=== PATIENT | male | born 1960 | race Caucasian/White ===

== ENCOUNTER 2023-06-01 14:12 | Inpatient (IN) | payer MEDICARE, MEDICAID ==
[2023-06-01] MEDS ORDERED: Morphine 4 MG/ML VIAL ONE (16:54)
[2023-06-01 17:11] LABS: #Eosinphils 0.3 10x3/uL (0.0-0.5); #Monocytes 0.6 10x3/uL (0.0-1.1); #Neutrophils 5.1 10x3/uL (1.5-8.4); %Basophils 0.5 % (0.0-2.0); %Eosinophils 3.7 % (0.0-6.0); %Lymphocytes 26.4 % (18.0-47.0); %Monocytes 7.7 % (0.0-10.0); %Neutrophils 61.3 % (40.0-75.0); Hematocrit 40.3 % (38.8-50.0); Hemoglobin 12.8 g/dL (13.5-17.5); Mean Corpuscular HGB CONC 31.8 g/dL (32.0-36.0); Mean Corpuscular Hemoglobin 29.8 pg (27.0-33.0); Mean Corpuscular Volume 93.9 fl (81.2-95.1); Mean Platelet Volume 9.4 fl (7.4-10.4); Platelet Count 172 10x3/uL (150-450); Red Blood Cell (RBC) Count 4.29 10x6/uL (4.32-5.72); White Blood Cell (WBC) Count 8.3 10x3/uL (3.5-10.5)
[2023-06-01 17:29] LABS: PTT 25.8 sec (22.0-33.0); Prothrombin Time 10.3 sec (9.5-12.1)
[2023-06-01 17:31] LABS: ALT (SGPT) 13 U/L (8-55); AST (SGOT) 21 U/L (5-34); Albumin 3.7 g/dL (3.4-4.8); Alkaline Phosphatase 103 U/L (40-110); Anion Gap 14 mmol/L (10-20); BUN (Urea Nitrogen) 22 mg/dL (8.4-25.7); Bilirubin, Total 0.5 mg/dL (0.2-1.2); Calc. Creatinine Clearance 0 mL/min (70-130); Calcium 8.7 mg/dL (7.8-10.44); Carbon Dioxide 20 mmol/L (23-31); Chloride 109 mmol/L (98-107); Estimated GFR 49; Globulin 3.9 g/dL (2.4-3.5); Glucose 85 mg/dL (80-115); Potassium 5.4 mmol/L (3.5-5.1); Protein, Total 7.6 g/dL (5.8-8.1); Sodium 138 mmol/L (136-145)
[2023-06-01] MEDS ORDERED: fentaNYL 50 mcg/mL 1 mL Vial ONE (17:39)
[2023-06-01] MEDS ORDERED: Calcium Carbonate 500 MG ChewTAB PO PRN (19:20)
[2023-06-01] MEDS ORDERED: Ondansetron PF 4 MG/2 ML Vial IVP PRN (19:20)
[2023-06-01] MEDS ORDERED: Senokot S 8.6-50 MG TAB PO PRN (19:20)
[2023-06-01] MEDS ORDERED: Dextrose 5% in Water 1,000 ML IV PRN (19:20)
[2023-06-01] MEDS ORDERED: Acetaminophen 325 MG TAB PO PRN (19:20)
[2023-06-01] MEDS ORDERED: Guaifenesin DM 100-10/5 ML UDCUP PO PRN (19:20)
[2023-06-01] MEDS ORDERED: Glucagon 1 MG/ML KIT IM PRN (19:20)
[2023-06-01] MEDS ORDERED: Dextrose 50% Abboject 50 ML SYRINGE SLOW IVP PRN (19:20)
[2023-06-01] MEDS ORDERED: Ventolin HFA Inhaler 60 PUFF INHALER INH PRN (19:23)
[2023-06-01] MEDS ORDERED: Ipratropium/Albuterol 3 ML NEB NEB PRN (19:27)
[2023-06-01] MEDS ORDERED: Morphine 2 MG/ML VIAL SLOW IVP PRN (19:48)
[2023-06-01] MEDS ORDERED: Calcium Gluc 4.6 MEQ/10 ML (100 MG/ML) SLOW IVP SCH (20:00)
[2023-06-01 20:19] VITALS: BMI 41.5
[2023-06-01] MEDS ORDERED: Nicotine 21 MG PATCH TD SCH (20:45)
[2023-06-01] MEDS: Atorvastatin Calcium 40 MG TAB PO SCH (20:56)
[2023-06-01] MEDS: Venlafaxine 75 MG TAB PO SCH (20:56)
[2023-06-01] MEDS: Famotidine/PF 20 mg/2ml Vial SLOW IVP SCH (20:56)
[2023-06-01] MEDS: traZODone HCl 50 MG TAB PO SCH (20:56)
[2023-06-01] MEDS ORDERED: traZODone HCl 150 MG TAB PO SCH (21:00)
[2023-06-01] MEDS: Isosorbide Mononitrate 20 MG TAB PO SCH (21:15)
[2023-06-01] MEDS ORDERED: Sodium Chloride 0.45% 500 ML IV SCH (23:30)
[2023-06-01] MEDS: oxyCODONE 5 MG TAB PO PRN (23:33)
[2023-06-02] MEDS: Morphine 4 MG/ML VIAL SLOW IVP PRN ×4 (01:58→16:10)
[2023-06-02 03:55] LABS: #Eosinphils 0.2 10x3/uL (0.0-0.5); #Monocytes 0.5 10x3/uL (0.0-1.1); #Neutrophils 5.7 10x3/uL (1.5-8.4); %Basophils 0.4 % (0.0-2.0); %Eosinophils 2.1 % (0.0-6.0); %Lymphocytes 17.7 % (18.0-47.0); %Monocytes 6.7 % (0.0-10.0); %Neutrophils 72.8 % (40.0-75.0); Hematocrit 37.8 % (38.8-50.0); Hemoglobin 12.5 g/dL (13.5-17.5); Mean Corpuscular HGB CONC 33.1 g/dL (32.0-36.0); Mean Corpuscular Hemoglobin 30.1 pg (27.0-33.0); Mean Corpuscular Volume 91.1 fl (81.2-95.1); Mean Platelet Volume 9.3 fl (7.4-10.4); Platelet Count 175 10x3/uL (150-450); RBC Distribution Width 13.8 % (11.5-14.5); Red Blood Cell (RBC) Count 4.15 10x6/uL (4.32-5.72); White Blood Cell (WBC) Count 7.8 10x3/uL (3.5-10.5)
[2023-06-02 04:00] LABS: Anion Gap 16 mmol/L (10-20); BUN (Urea Nitrogen) 18 mg/dL (8.4-25.7); Calc. Creatinine Clearance 117 mL/min (70-130); Calcium 8.7 mg/dL (7.8-10.44); Carbon Dioxide 20 mmol/L (23-31); Chloride 109 mmol/L (98-107); Estimated GFR 68; Glucose 111 mg/dL (80-115); PTT 30.8 sec (22.0-33.0); Potassium 5.1 mmol/L (3.5-5.1); Prothrombin Time 10.9 sec (9.5-12.1); Sodium 140 mmol/L (136-145)
[2023-06-02] MEDS: Mometasone/Formoterol 200/5 60 PUFF INH SCH ×2 (08:23→19:40)
[2023-06-02] MEDS: Atenolol 25 MG TAB PO SCH (08:59)
[2023-06-02] MEDS: Venlafaxine 75 MG TAB PO SCH ×3 (08:59→20:19)
[2023-06-02] MEDS: Isosorbide Mononitrate 20 MG TAB PO SCH ×2 (08:59→20:26)
[2023-06-02] MEDS: Ezetimibe 10 MG TAB PO SCH (08:59)
[2023-06-02] MEDS: Famotidine/PF 20 mg/2ml Vial SLOW IVP SCH ×2 (09:00→20:18)
[2023-06-02] MEDS ORDERED: FLU VACC QS2023-24(6MOS UP)/PF 60 MCG/0.5 ML SYRINGE IM ONE (09:00)
[2023-06-02] MEDS ORDERED: LISINOPRIL 30 MG PO SCH (09:00)
[2023-06-02] MEDS: Benztropine 1 MG TAB PO SCH (09:16)
[2023-06-02] MEDS ORDERED: Thrombin 5000 UNITS/5 ML VIAL TOP SCH ×2 (10:45→11:30)
[2023-06-02] MEDS ORDERED: Sodium Bicarbonate 2.5 MEQ/5 ML VIAL ONE (10:47)
[2023-06-02] MEDS ORDERED: Lidocaine 1% PF 5 ML VIAL ONE ×2 (10:47→11:20)
[2023-06-02] MEDS: oxyCODONE 5 MG TAB PO PRN ×2 (13:12→20:19)
[2023-06-02] MEDS ORDERED: Diclofenac 1% 100 GM Topical GEL TP SCH (17:00)
[2023-06-02] MEDS: Atorvastatin Calcium 40 MG TAB PO SCH (20:17)
[2023-06-02] MEDS: traZODone HCl 50 MG TAB PO SCH (20:18)
[2023-06-02] MEDS: Diclofenac 1% 50 GM TOPICAL GEL TP SCH (21:35)
[2023-06-03] MEDS: Mometasone/Formoterol 200/5 60 PUFF INH SCH (07:50)
[2023-06-03] MEDS: Ezetimibe 10 MG TAB PO SCH (09:10)
[2023-06-03] MEDS: Isosorbide Mononitrate 20 MG TAB PO SCH (09:10)
[2023-06-03] MEDS: Famotidine/PF 20 mg/2ml Vial SLOW IVP SCH (09:10)
[2023-06-03] MEDS: Diclofenac 1% 50 GM TOPICAL GEL TP SCH ×2 (09:10→13:24)
[2023-06-03] MEDS: Atenolol 25 MG TAB PO SCH (09:10)
[2023-06-03] MEDS: Venlafaxine 75 MG TAB PO SCH (09:10)
[2023-06-03] MEDS: Benztropine 1 MG TAB PO SCH (09:10)
[2023-06-03] MEDS: oxyCODONE 5 MG TAB PO PRN (09:15)
[2023-06-03 12:08] LABS: #Eosinphils 0.1 10x3/uL (0.0-0.5); #Monocytes 0.7 10x3/uL (0.0-1.1); #Neutrophils 6.5 10x3/uL (1.5-8.4); %Basophils 0.4 % (0.0-2.0); %Eosinophils 0.8 % (0.0-6.0); %Lymphocytes 13.3 % (18.0-47.0); %Monocytes 7.8 % (0.0-10.0); %Neutrophils 77.3 % (40.0-75.0); Hematocrit 37.7 % (38.8-50.0); Hemoglobin 12.7 g/dL (13.5-17.5); Mean Corpuscular HGB CONC 33.7 g/dL (32.0-36.0); Mean Corpuscular Volume 89.1 fl (81.2-95.1); Mean Platelet Volume 9.5 fl (7.4-10.4); Platelet Count 206 10x3/uL (150-450); RBC Distribution Width 13.7 % (11.5-14.5); Red Blood Cell (RBC) Count 4.23 10x6/uL (4.32-5.72); White Blood Cell (WBC) Count 8.4 10x3/uL (3.5-10.5)
[2023-06-03 12:19] VITALS: BP 117/70; TEMP 97.9
[2023-06-03] MEDS: Morphine 4 MG/ML VIAL SLOW IVP PRN (12:23)
[2023-06-03] MEDS ORDERED: ALPRAZolam 0.5 MG TAB PO SCH (13:00)
[2023-06-03] MEDS ORDERED: Nicotine 21 MG PATCH TD SCH (14:00)
== END 2023-06-03 14:41 | disposition short-term general hospital (02) | DRG 300 ==
LOC: CSHERS 14:12 → CSHTELE 19:51 → OBSVTOIN 06-03 12:08
PROVIDERS: ADMIT Student in an Organized Health Care Education/Training Program; ATTEND Family Medicine
DX: T81.718A Complication of other artery following a procedure, not elsewhere classified, initial encounter (principal); D62 Acute posthemorrhagic anemia; N17.9 Acute kidney failure, unspecified; I50.32 Chronic diastolic (congestive) heart failure; I13.0 Hypertensive heart and chronic kidney disease with heart failure and stage 1 through stage 4 chronic kidney disease, or unspecified chronic kidney disease; F17.210 Nicotine dependence, cigarettes, uncomplicated; S30.1XXA Contusion of abdominal wall, initial encounter; E78.5 Hyperlipidemia, unspecified; E11.9 Type 2 diabetes mellitus without complications; E66.01 Morbid (severe) obesity due to excess calories; G47.33 Obstructive sleep apnea (adult) (pediatric); E87.5 Hyperkalemia; F41.9 Anxiety disorder, unspecified; F32.A Depression, unspecified; J44.9 Chronic obstructive pulmonary disease, unspecified; K21.9 Gastro-esophageal reflux disease without esophagitis; N18.2 Chronic kidney disease, stage 2 (mild); Z88.5 Allergy status to narcotic agent; Z88.8 Allergy status to other drugs, medicaments and biological substances; Z79.899 Other long term (current) drug therapy; Z90.49 Acquired absence of other specified parts of digestive tract; Z98.890 Other specified postprocedural states
CPT/HCPCS: 36002; 36415; 36416; 76942; 80048; 85025; 85610; 85730; 90471; 90686; 93005; 93923; 94640; G0008; J0612; J2270; J2272; J3010; J7611; S0028

== ENCOUNTER 2023-06-23 08:00 | Outpatient (CLI) | payer MEDICARE, MEDICAID | END 2023-06-23 08:01 | disposition home or self-care (01) | LOC: CSHCT 08:00 | PROVIDERS: ATTEND Internal Medicine | DX: Z12.2 Encounter for screening for malignant neoplasm of respiratory organs (principal); F17.218 Nicotine dependence, cigarettes, with other nicotine-induced disorders | CPT/HCPCS: 71271 ==

== ENCOUNTER 2024-02-19 22:12 | Emergency (ER) | payer MEDICARE, MEDICAID ==
[~2024-02-19 22:12] MED LIST: Iopamidol 300 61% 100 ML VIAL FS ONE
[2024-02-19 23:00] LABS: #Basophils 0.04 10x3/uL (0.0-0.2); #Eosinphils 0.13 10x3/uL (0.0-0.5); #Monocytes 0.55 10x3/uL (0.0-1.1); #Neutrophils 4.69 10x3/uL (1.5-8.4); %Basophils 0.6 % (0.0-2.0); %Eosinophils 1.8 % (0.0-6.0); %Lymphocytes 22.8 % (18.0-47.0); %Monocytes 7.8 % (0.0-10.0); %Neutrophils 66.7 % (40.0-75.0); Hematocrit 46.2 % (38.8-50.0); Hemoglobin 15.8 g/dL (13.5-17.5); Mean Corpuscular HGB CONC 34.2 g/dL (32.0-36.0); Mean Corpuscular Volume 90.8 fL (81.2-95.1); Mean Platelet Volume 9.1 fL (7.4-10.4); Platelet Count 171 10x3/uL (150-450); RBC Distribution Width 13.2 % (11.5-14.5); Red Blood Cell (RBC) Count 5.09 10x6/uL (4.32-5.72)
[2024-02-19] MEDS ORDERED: Morphine 4 MG/ML VIAL ONE (23:01)
[2024-02-19] MEDS ORDERED: Ondansetron PF 4 MG/2 ML Vial ONE (23:01)
[2024-02-19 23:14] LABS: ALT (SGPT) 12 U/L (8-55); AST (SGOT) 18 U/L (5-34); Albumin 3.5 g/dL (3.4-4.8); Alkaline Phosphatase 103 U/L (40-110); Anion Gap 12 mmol/L (10-20); BUN (Urea Nitrogen) 20 mg/dL (8.4-25.7); Bilirubin, Total 0.3 mg/dL (0.2-1.2); Calc. Creatinine Clearance 0 mL/min (70-130); Calcium 9.1 mg/dL (7.8-10.44); Carbon Dioxide 25 mmol/L (23-31); Chloride 107 mmol/L (98-107); Estimated GFR 50; Globulin 4.3 g/dL (2.4-3.5); Glucose 118 mg/dL (80-115); Lipase 17 U/L (8-78); Potassium 4.9 mmol/L (3.5-5.1); Protein, Total 7.8 g/dL (5.8-8.1); Sodium 139 mmol/L (136-145)
== END 2024-02-20 01:13 | disposition home or self-care (01) ==
LOC: CSHERS 22:12
DX: R10.32 Left lower quadrant pain (principal); I13.0 Hypertensive heart and chronic kidney disease with heart failure and stage 1 through stage 4 chronic kidney disease, or unspecified chronic kidney disease; I50.9 Heart failure, unspecified; N18.30 Chronic kidney disease, stage 3 unspecified; I25.10 Atherosclerotic heart disease of native coronary artery without angina pectoris; J44.9 Chronic obstructive pulmonary disease, unspecified; F17.210 Nicotine dependence, cigarettes, uncomplicated; Z79.02 Long term (current) use of antithrombotics/antiplatelets; Z79.899 Other long term (current) drug therapy
CPT/HCPCS: 74177; 80053; 83690; 85025; 96361; 96374; 96375; 99284; J2270; J2405; Q9967

== ENCOUNTER 2024-05-16 07:12 | Outpatient (CLI) | payer OTHER, MEDICAID ==
[2024-05-16 09:58] VITALS: BP 93/52
[2024-05-16] MEDS ORDERED: Iopamidol-M 300 61% 15 ML VIAL ONE (10:20)
== END 2024-05-16 07:13 | disposition home or self-care (01) ==
LOC: CSHRAD 07:12
PROVIDERS: ATTEND Neurological Surgery
DX: M48.061 Spinal stenosis, lumbar region without neurogenic claudication (principal); M51.04 Intervertebral disc disorders with myelopathy, thoracic region; M50.00 Cervical disc disorder with myelopathy, unspecified cervical region; Z98.890 Other specified postprocedural states; M47.816 Spondylosis without myelopathy or radiculopathy, lumbar region; I71.43 Infrarenal abdominal aortic aneurysm, without rupture; M47.14 Other spondylosis with myelopathy, thoracic region; M48.04 Spinal stenosis, thoracic region; M41.84 Other forms of scoliosis, thoracic region; Z96.89 Presence of other specified functional implants; M47.12 Other spondylosis with myelopathy, cervical region
CPT/HCPCS: 62284; 72126; 72129; 72132; 77003

== ENCOUNTER 2024-07-26 09:17 | Observation (INO) | payer MEDICARE, MEDICAID ==
[2024-07-26 09:58] LABS: #Basophils 0.03 10x3/uL (0.0-0.2); #Eosinophils 0.13 10x3/uL (0.0-0.5); #Monocytes 0.48 10x3/uL (0.0-1.1); #Neutrophils 4.15 10x3/uL (1.5-8.4); %Basophils 0.5 % (0.0-2.0); %Eosinophils 2.2 % (0.0-6.0); %Lymphocytes 17.9 % (18.0-47.0); %Monocytes 8.2 % (0.0-10.0); %Neutrophils 70.9 % (40.0-75.0); Hematocrit 48.2 % (38.8-50.0); Hemoglobin 16.5 g/dL (13.5-17.5); Mean Corpuscular HGB CONC 34.2 g/dL (32.0-36.0); Mean Corpuscular Volume 90.4 fL (81.2-95.1); Platelet Count 178 10x3/uL (150-450); RBC Distribution Width 13.6 % (11.5-14.5); Red Blood Cell (RBC) Count 5.33 10x6/uL (4.32-5.72); White Blood Cell (WBC) Count 5.9 10x3/uL (3.5-10.5)
[2024-07-26 10:19] LABS: Troponin I Less than 0.010 ng/mL (< 0.028)
[2024-07-26 10:20] LABS: ALT (SGPT) 10 U/L (8-55); AST (SGOT) 12 U/L (5-34); Albumin 3.6 g/dL (3.4-4.8); Alkaline Phosphatase 117 U/L (40-110); Anion Gap 14 mmol/L (10-20); BUN (Urea Nitrogen) 19 mg/dL (8.4-25.7); Bilirubin, Total 0.4 mg/dL (0.2-1.2); Calc. Creatinine Clearance 0 mL/min (70-130); Calcium 8.8 mg/dL (7.8-10.44); Carbon Dioxide 24 mmol/L (23-31); Chloride 103 mmol/L (98-107); Estimated GFR 53; Glucose 93 mg/dL (80-115); Potassium 5.1 mmol/L (3.5-5.1); Protein, Total 7.6 g/dL (5.8-8.1); Sodium 136 mmol/L (136-145)
[2024-07-26] MEDS ORDERED: Morphine 2 MG/ML VIAL ONE (10:46)
[2024-07-26] MEDS ORDERED: Nitroglycerin 0.4 MG TAB (25 Tab Bottle) SL PRN (13:27)
[2024-07-26 14:31] LABS: Troponin I Less than 0.010 ng/mL (< 0.028)
[2024-07-26 14:45] VITALS: BMI 33.0
[2024-07-26] MEDS: Nicotine 21 MG PATCH TD SCH (15:30)
[2024-07-26] MEDS ORDERED: oxyCODONE 5 MG TAB ONE ×2 (16:50→20:58)
[2024-07-26 16:56] LABS: Troponin I Less than 0.010 ng/mL (< 0.028)
[2024-07-26] MEDS: oxyCODONE 5 MG TAB PO PRN (16:58)
[2024-07-26] MEDS: Nitroglycerin 2% Ointment 1 INCH/1 GM Packet TOP SCH ×2 (17:02→23:16)
[2024-07-26] MEDS ORDERED: Famotidine 20 MG TAB ONE (19:25)
[2024-07-26] MEDS ORDERED: Metoprolol Tartrate 25 MG TAB ONE (19:25)
[2024-07-26] MEDS: Metoprolol Tartrate 25 MG TAB PO SCH (19:50)
[2024-07-26] MEDS: Famotidine 20 MG TAB PO SCH (19:50)
[2024-07-26] MEDS ORDERED: Acetaminophen 325 MG TAB ONE (23:13)
[2024-07-26] MEDS: Acetaminophen 325 MG TAB PO PRN (23:20)
[2024-07-27] MEDS ORDERED: oxyCODONE 5 MG TAB ONE ×2 (01:10→05:22)
[2024-07-27] MEDS ORDERED: Acetaminophen 325 MG TAB ONE (04:04)
[2024-07-27 05:22] LABS: Anion Gap 15 mmol/L (10-20); BUN (Urea Nitrogen) 15 mg/dL (8.4-25.7); Calc. Creatinine Clearance 82 mL/min (70-130); Calcium 9.1 mg/dL (7.8-10.44); Carbon Dioxide 17 mmol/L (23-31); Cardiac Risk 4.7 (Less than 4.5); Chloride 108 mmol/L (98-107); Cholesterol 146 mg/dl (< 200 Desired); Estimated GFR 59; Glucose 96 mg/dL (80-115); HDL Cholesterol 31 mg/dL (>60 Neg Risk); LDL Cholesterol, Calculated 75 mg/dL; Potassium 5.1 mmol/L (3.5-5.1); Sodium 135 mmol/L (136-145); Triglycerides 202 mg/dL (Less than 150)
[2024-07-27] MEDS ORDERED: Nitroglycerin 2% Ointment 1 INCH/1 GM Packet ONE (05:33)
[2024-07-27] MEDS ORDERED: Enoxaparin 40 MG (0.4 mL) SYRINGE ONE (09:21)
[2024-07-27] MEDS ORDERED: Famotidine 20 MG TAB ONE (09:21)
[2024-07-27] MEDS ORDERED: Metoprolol Tartrate 25 MG TAB ONE (09:21)
[2024-07-27] MEDS ORDERED: Aspirin Chewable 81 MG TAB ONE (09:21)
[2024-07-27] MEDS: Aspirin Chewable 81 MG TAB PO SCH (09:45)
[2024-07-27] MEDS: Enoxaparin 40 MG (0.4 mL) SYRINGE SC SCH (09:45)
[2024-07-27 09:49] VITALS: BP 133/91; TEMP 98
[2024-07-27] MEDS ORDERED: Ventolin HFA Inhaler 60 PUFF INHALER INH PRN (10:09)
[2024-07-27] MEDS ORDERED: Atorvastatin Calcium 40 MG TAB PO SCH (10:30)
[2024-07-27] MEDS ORDERED: Isosorbide Mononitrate 20 MG TAB PO SCH ×2 (10:30→18:00)
[2024-07-28] MEDS ORDERED: Ezetimibe 10 MG TAB PO SCH (09:00)
[2024-07-28] MEDS ORDERED: Aspirin 81 mg Enteric Coated Tablet PO SCH (09:00)
[2024-07-28] MEDS ORDERED: Atorvastatin Calcium 40 MG TAB PO SCH (09:00)
== END 2024-07-27 12:26 | disposition home or self-care (01) ==
LOC: CSHERS 09:17 → CSHERHOLD 13:53 → INTOOBSV 13:53
PROVIDERS: ADMIT Internal Medicine; ATTEND Internal Medicine
DX: R07.89 Other chest pain (principal); I25.10 Atherosclerotic heart disease of native coronary artery without angina pectoris; I73.9 Peripheral vascular disease, unspecified; I12.9 Hypertensive chronic kidney disease with stage 1 through stage 4 chronic kidney disease, or unspecified chronic kidney disease; N18.30 Chronic kidney disease, stage 3 unspecified; E11.22 Type 2 diabetes mellitus with diabetic chronic kidney disease; E78.5 Hyperlipidemia, unspecified; E66.01 Morbid (severe) obesity due to excess calories; J44.9 Chronic obstructive pulmonary disease, unspecified; F41.9 Anxiety disorder, unspecified; F32.A Depression, unspecified; Z90.49 Acquired absence of other specified parts of digestive tract; Z87.891 Personal history of nicotine dependence; Z88.5 Allergy status to narcotic agent; Z88.8 Allergy status to other drugs, medicaments and biological substances; Z79.51 Long term (current) use of inhaled steroids; Z79.84 Long term (current) use of oral hypoglycemic drugs; Z79.02 Long term (current) use of antithrombotics/antiplatelets; Z79.82 Long term (current) use of aspirin; Z79.1 Long term (current) use of non-steroidal anti-inflammatories (NSAID); Z79.899 Other long term (current) drug therapy
CPT/HCPCS: 71045; 80048; 80053; 80061; 83880; 84484 ×2; 85025; 96374; 99285; J1650; J2272; 36415; 93005; 93010

== ENCOUNTER 2024-09-28 08:53 | Outpatient (CLI) | payer OTHER, MEDICAID | END 2024-09-28 08:54 | disposition home or self-care (01) | LOC: CSHCT 08:53 | PROVIDERS: ATTEND Internal Medicine | DX: R10.11 Right upper quadrant pain (principal); I71.40 Abdominal aortic aneurysm, without rupture, unspecified | CPT/HCPCS: 74176 ==

== ENCOUNTER 2025-03-20 11:33 | Emergency (ER) | payer OTHER, MEDICAID ==
[2025-03-20 13:23] LABS: #Basophils 0.03 10x3/uL (0.0-0.2); #Eosinophils 0.13 10x3/uL (0.0-0.5); #Monocytes 0.46 10x3/uL (0.0-1.1); #Neutrophils 4.47 10x3/uL (1.5-8.4); %Basophils 0.5 % (0.0-2.0); %Eosinophils 2.0 % (0.0-6.0); %Lymphocytes 21.0 % (18.0-47.0); %Monocytes 7.1 % (0.0-10.0); %Neutrophils 69.1 % (40.0-75.0); Hematocrit 47.8 % (38.8-50.0); Hemoglobin 15.7 g/dL (13.5-17.5); Mean Corpuscular Hemoglobin 29.3 pg (27.0-33.0); Mean Corpuscular Volume 89.2 fL (81.2-95.1); Platelet Count 169 10x3/uL (150-450); Red Blood Cell (RBC) Count 5.36 10x6/uL (4.32-5.72); White Blood Cell (WBC) Count 6.47 10x3/uL (3.5-10.5)
[2025-03-20 13:44] LABS: ALT (SGPT) 11 U/L (Less than 45); AST (SGOT) 15 U/L (11-34); Albumin 3.7 g/dL (3.1-4.5); Alkaline Phosphatase 97 U/L (40-110); Anion Gap 13 mmol/L (10-20); BUN (Urea Nitrogen) 23 mg/dL (8.4-25.7); Bilirubin, Total 0.4 mg/dL (0.3-1.2); Calc. Creatinine Clearance 0 mL/min (70-130); Calcium 8.6 mg/dL (7.8-10.44); Carbon Dioxide 26 mmol/L (23-31); Chloride 103 mmol/L (98-107); Globulin 3.9 g/dL (2.4-3.5); Glucose 92 mg/dL (80-115); Lipase 16 U/L (8-78); Potassium 4.8 mmol/L (3.5-5.1); Sodium 137 mmol/L (136-145)
[2025-03-20 13:45] LABS: Troponin I Less than 0.010 ng/mL (< 0.028)
== END 2025-03-20 15:25 | disposition home or self-care (01) ==
LOC: CSHERS 11:33
DX: K59.00 Constipation, unspecified (principal); I13.0 Hypertensive heart and chronic kidney disease with heart failure and stage 1 through stage 4 chronic kidney disease, or unspecified chronic kidney disease; I50.9 Heart failure, unspecified; I25.10 Atherosclerotic heart disease of native coronary artery without angina pectoris; N18.30 Chronic kidney disease, stage 3 unspecified; I25.2 Old myocardial infarction; J44.9 Chronic obstructive pulmonary disease, unspecified; I71.40 Abdominal aortic aneurysm, without rupture, unspecified; F17.210 Nicotine dependence, cigarettes, uncomplicated; Z79.899 Other long term (current) drug therapy
CPT/HCPCS: 71275; 74174; 80053; 83605; 83690; 84484; 85025; 93005; 93010

== ENCOUNTER 2025-05-21 15:19 | Emergency (ER) | payer OTHER, MEDICAID ==
[2025-05-21] MEDS ORDERED: HYDROcodone/Acetaminophen 5/325 mg Tablet ONE (16:40)
== END 2025-05-21 17:29 | disposition home or self-care (01) ==
LOC: CSHERS 15:19
DX: S80.02XA Contusion of left knee, initial encounter (principal); S80.01XA Contusion of right knee, initial encounter; I25.2 Old myocardial infarction; I25.10 Atherosclerotic heart disease of native coronary artery without angina pectoris; J44.9 Chronic obstructive pulmonary disease, unspecified; I13.0 Hypertensive heart and chronic kidney disease with heart failure and stage 1 through stage 4 chronic kidney disease, or unspecified chronic kidney disease; I50.9 Heart failure, unspecified; N18.30 Chronic kidney disease, stage 3 unspecified; Z86.718 Personal history of other venous thrombosis and embolism; F17.290 Nicotine dependence, other tobacco product, uncomplicated; W01.0XXA Fall on same level from slipping, tripping and stumbling without subsequent striking against object, initial encounter
CPT/HCPCS: 99283